=== PATIENT | female | born 1980 | race Caucasian/White ===

== ENCOUNTER 2018-09-26 10:33 | Emergency (ER) | payer MEDICAID, SELFPAY ==
[2018-09-26 10:39] VITALS: BP 150/87; PULSE 83; RESP 14; TEMP 36.6; O2SAT 98
--- NOTE | 2018-09-26 10:45 | W.ED.GENAD ---
Discharge Plan Disposition Patient Disposition: HOME Condition: Fair Discharge Details Chief Complaint: Orthopedic Clinical Impression: Arm pain, right Primary Care Provider: Te Ruggiero ED Provider: Bebe Barnes Home Meds and New Rx's Prescriptions: Continued lorazepam [Ativan] 1 mg Tablet 1 mg PO QDAY PRNRF: 0 sertraline [Zoloft] 50 mg Tablet 50 mg PO DAILY RF: 0 Discharge Instructions Instructions: Arm Pain (ED) Additional Instructions: Encourage rest, ice, elevation. Tylenol and ibuprofen as needed for discomfort. Continue with the sling while pain persists. However, please take this off at least 6 times daily to work on range of motion of your elbow, wrist, shoulder as discussed. Please follow-up with Ortho, call to schedule appointment, number listed below. If you develop fever/chills, increased pain, altered sensation or other new/worsening symptoms please seek care urgently once again. I will call you by 3PM with radiologist results, if you do not hear please call the emergency department directly. Referrals: Ruben Dailey MD [ [facility] STAFF PHYSICIAN] - Te Ruggiero [Primary Care Provider] - Discharge Data Discharge Date/Time-TO BE ENTERED AT DEPARTURE: 09/26/18 13:36 Medical Decision Making Patient is a 38-year-old [id number] female presenting today with chief complaint of exquisit right arm pain. She reports that over the weekend she did a cartwheel while intoxicated and fell striking her arm against a rock. Was seen at [place] emergency department at which time x-rays were performed she is unclear on the results. Patient presents today in a sling. Is endorsing primary source of pain is in the elbow. Is also endorsing pain in the wrist and over the AC joint. On exam, she has slightly prominent AC joint, this is comparable to the contralateral side. Patient has exquisite tenderness with any type of palpation about the elbow. Very limited range of motion. She has ecchymosis and swelling along the medial aspect. No deformity noted. She has 2+ distal pulses. Range of motion of the risk is increased pain in the elbow. She does have pain on palpation of the dorsal aspect of the wrist. No snuffbox tenderness. Hand is unremarkable. Plan to obtain imaging to evaluate for any fracture, will try to get [facility] records. Pain out of proportion. Review [facility] records, they advised that there is a question possible chip fracture of the olecranon. Discussed this with the patient. Images here reviewed by myself, I do not see any acute fracture abnormality. Appears that her clavicle is prominent but there is no defect of the AC joint. I do not appreciate any fat pads. Patient has to leave secondary to time constraints, but does not want to wait for radiology read. I will call her with results. She will continue with sling, particularly given the exquisite level of discomfort. I advised that some of her pain may be from inflamed area of the medial aspect of the elbow causing pressure ulnar nerve. Encourage rest, ice, elevation. Tylenol and ibuprofen as needed for discomfort. I did advise that she work on range of motion exercises to help with this or given. I have asked patient follow-up with orthopedics. All other questions and concerns were addressed and she is in agreement this plan After patient was discharged, I did call her back to let her know that radiologist did not note any acute sure bony abnormality HPI General Mode of arrival: ambulatory. Date/Time Provider Initiated Documentation: 09/26/18 10:45. Limitations to Documentation: no limitations. Information obtained by: patient and RN notes reviewed. History of Present Illness 38 year old F presents to the emergency department with the chief complaint of right shoulder, elbow and wrist pain after fall 2 days ago, described as moderate, with intensity rated at 8. Quality is described as aching, and is localized to the right and upper extremity. Patient reports no radiation. Patient started experiencing this day(s) (2) and it has been constant. Immobilization improves symptom(s), Movement worsens symptoms . Patient notes rash (eccymosis right medial elbow) and weakness; denies confusion, chest pain, fever/chills, headaches, nausea/vomiting and shortness of breath. Patient did receive the following treatments prior to arrival, NSAID and splint (in sling) Related Data Home Medications Medication Instructions Recorded Confirmed lorazepam [Ativan] 1 mg PO QDAY PRN 09/26/18 09/26/18 sertraline [Zoloft] 50 mg PO DAILY 09/26/18 09/26/18 Allergies Allergy/AdvReac Type Severity Reaction Status Date / Time No Known Allergies Allergy Unverified 09/26/18 10:43 General Stated Complaint: Orthopedic ALICE: 3 Review of Systems Constitutional Reports as per HPI, Denies chills, Denies fever(s), Denies headache(s) and Denies weakness ENT Denies headache(s) Cardiovascular Reports as per HPI Respiratory Reports as per HPI and Denies cough Musculoskeletal Reports as per HPI and Denies tingling Integumentary/Breasts Reports as per HPI, Denies rash and Denies wounds Neurologic Reports as per HPI, Denies headache(s), Denies tingling, Denies paresthesias and Denies weakness [facility] Social History Smoking/Tobacco Use Status: Current every day Tobacco Type: cigarettes Alcohol Intake: current Alcohol Intake frequency: holidays/special occasions only Drug use: Never Substance use type: does not use Do you feel safe at home: Yes Do you feel safe in your relationship?: Yes Exam Const General: cooperative, healthy appearing, comfortable, no acute distress, well developed and well groomed Nutritional Appearance: average body habitus and well nourished Orientation: alert and awake Resp Effort & Inspection: normal respiratory effort, able to speak in complete sentences and no respiratory distress Cardio Rate: regular rate Rhythm: regular rhythm Skin General skin exam: no rashes or lesions noted Lesions: no lesions Rashes: no rashes Trauma: no lacerations or abrasions Neuro General: alert and awake Cognition: normal cognition Speech: speech normal Gait: normal gait Motor: muscle tone normal throughout Sensory Exam: no sensory deficits noted Extrem Right upper extremity: normal capillary refill, no joint enlargement, shoulder/upper arm Details: tenderness Location: of the A-C joint and axillary nerve sensory function normal; no swelling and ROM limited, elbow/forearm Details: tenderness Location: of the olecranon, of the lateral epicondyle and of the medial epicondyle, swelling Location: of the medial epicondyle (swelling with ecchymosis), abnormal ROM Details: pain with active ROM during Details: with extension, with flexion, with pronation and with supination and ecchymosis; no unusual warmth, no abrasions, no lacerations, no crepitus and no deformity, wrist Details: tenderness Location: of the dorsal wrist; not of the anatomic snuffbox and radial pulse present; no swelling, ROM abnormal (limited supination/pronation, causes pain in elbow), no unusual warmth, no abrasions, no ecchymosis, no crepitus and no deformity and hand Details: normal to inspection, normal capillary refill, neuromotor exam normal, neurosensory exam normal, tendon exam normal, vascular exam Details: radial pulse present and normal capillary refill and no swelling; no tenderness, no unusual warmth, no swelling and no ecchymosis Psych Appearance: grossly normal and well kempt Mental Status: mental status grossly normal Speech and Movement: speech and movement normal Course Vital Signs Temperature 36.6 C 09/26/18 10:39 Pulse 83 09/26/18 10:39 Respiratory Rate 14 09/26/18 10:39 Blood Pressure 150/87 H 09/26/18 10:39 Pulse Oximetry 98 09/26/18 10:39 Temperature 36.6 C 09/26/18 10:39 Temperature Source Temporal Artery Scan 09/26/18 10:39 Pulse 83 09/26/18 10:39 Respiratory Rate 14 09/26/18 10:39 Respiratory Effort Non-Labored 09/26/18 10:42 Blood Pressure 150/87 H 09/26/18 10:39 Blood Pressure Position Sitting 09/26/18 10:39 Pulse Oximetry 98 09/26/18 10:39 Oxygen Delivery Method Room Air 09/26/18 10:39 Oxygen Flow Rate 0 09/26/18 10:39 Pain Level 8 09/26/18 10:39
--- NOTE | 2018-09-26 11:41 | DI.RAD_ITS ---
SYMPTOMS/DIAGNOSIS: FALL RIGHT SHOULDER: No fracture or dislocation is seen. There are no significant degenerative changes. IMPRESSION: Negative right shoulder. RIGHT ELBOW: No fracture or joint effusion is seen. There is some posterior soft tissue swelling. IMPRESSION: Negative right elbow. RIGHT WRIST: No fracture or dislocation is seen. IMPRESSION: Negative right wrist.
[2018-09-26] MEDS: Ibuprofen 600 MG TAB PO (11:52)
--- NOTE | 2018-09-26 11:53 | NUR.NOTE ---
pt medicated as per mdo take to xray Nursing Note:
--- NOTE | 2018-09-26 13:48 | ED.GENADUL_ITS ---
Discharge Plan Disposition Patient Disposition: HOME Condition: Fair Discharge Details Chief Complaint: Orthopedic Clinical Impression: Arm pain, right Primary Care Provider: Te Ruggiero ED Provider: Bebe Barnes Home Meds and New Rx's Prescriptions: Continued lorazepam [Ativan] 1 mg Tablet 1 mg PO QDAY PRNRF: 0 sertraline [Zoloft] 50 mg Tablet 50 mg PO DAILY RF: 0 Discharge Instructions Instructions: Arm Pain (ED) Additional Instructions: Encourage rest, ice, elevation. Tylenol and ibuprofen as needed for discomfort. Continue with the sling while pain persists. However, please take this off at least 6 times daily to work on range of motion of your elbow, wrist, shoulder as discussed. Please follow-up with Ortho, call to schedule appointment, number listed below. If you develop fever/chills, increased pain, altered sensation or other new/worsening symptoms please seek care urgently once again. I will call you by 3PM with radiologist results, if you do not hear please call the emergency department directly. Referrals: Ruben Dailey MD [ [facility] STAFF PHYSICIAN] - Te Ruggiero [Primary Care Provider] - Discharge Data Discharge Date/Time-TO BE ENTERED AT DEPARTURE: 09/26/18 13:36 Medical Decision Making Patient is a 38-year-old [id number] female presenting today with chief complaint of exquisit right arm pain. She reports that over the weekend she did a cartwheel while intoxicated and fell striking her arm against a rock. Was seen at [place] emergency department at which time x-rays were performed she is unclear on the results. Patient presents today in a sling. Is endorsing primary source of pain is in the elbow. Is also endorsing pain in the wrist and over the AC joint. On exam, she has slightly prominent AC joint, this is comparable to the contralateral side. Patient has exquisite tenderness with any type of palpation about the elbow. Very limited range of motion. She has ecchymosis and swelling along the medial aspect. No deformity noted. She has 2+ distal pulses. Range of motion of the risk is increased pain in the elbow. She does have pain on palpation of the dorsal aspect of the wrist. No snuffbox tenderness. Hand is unremarkable. Plan to obtain imaging to evaluate for any fracture, will try to get [place] records. Pain out of proportion. Review [place] records, they advised that there is a question possible chip fracture of the olecranon. Discussed this with the patient. Images here reviewed by myself, I do not see any acute fracture abnormality. Appears that her clavicle is prominent but there is no defect of the AC joint. I do not appreciate any fat pads. Patient has to leave secondary to time constraints, but does not want to wait for radiology read. I will call her with results. She will continue with sling, particularly given the exquisite level of discomfort. I advised that some of her pain may be from inflamed area of the medial aspect of the elbow causing pressure ulnar nerve. Encourage rest, ice, elevation. Tylenol and ibuprofen as needed for discomfort. I did advise that she work on range of motion exercises to help with this or given. I have asked patient follow-up with orthopedics. All other questions and concerns were a ddressed and she is in agreement this plan After patient was discharged, I did call her back to let her know that radiologist did not note any acute sure bony abnormality HPI General Mode of arrival: ambulatory . Date/Time Provider Initiated Documentation: 09/26/18 10:45 . Limitations to Documentation: no limitations . Information obtained by: patient and RN notes reviewed . History of Present I baljinderness 38 year old F presents to the emergency department with the chief complaint of right shoulder, elbow and wrist pain after fall 2 days ago, described as moderate, with intensity rated at 8. Quality is described as aching, and is localized to the right and upper extremity. Patient reports no radiation. Patient started experiencing this day(s) (2) and it has been constant. Immobilization improves symptom(s), Movement worsens symptoms . Patient notes rash (eccymosis right medial elbow) and weakness; denies confusion, chest pain, fever/chills, headaches, nausea/vomiting and shortness of breath. Patient did receive the following treatments prior to arrival, NSAID and splint (in sling) Related Data Home Medications Medication Instructions Recorded Confirmed lorazepam [Ativan] 1 mg PO QDAY PRN 09/26/18 09/26/18 sertraline [Zoloft] 50 mg PO DAILY 09/26/18 09/26/18 Allergies Allergy/AdvReac Type Severity Reaction Status Date / Time No Known Allergies Allergy Unverified 09/26/18 10:43 General Stated Complaint: Orthopedic ALICE: 3 Review of Systems Constitutional Reports as per HPI, Denies chills, Denies fever(s), Denies headache(s) and Denies weakness ENT Denies headache(s) Cardiovascular Reports as per HPI Respiratory Reports as per HPI and Denies cough Musculoskeletal Reports as per HPI and Denies tingling Integumentary/Breasts Reports as per HPI, Denies rash and Denies wounds Neurologic Reports as per HPI, Denies headache(s), Denies tingling, Denies paresthesias and Denies weakness [facility] Social History Smoking/Tobacco Use Status: Current every day Tobacco Type: cigarettes Alcohol Intake: current Alcohol Intake frequency: holidays/special occasions only Drug use: Never Substance use type: does not use Do you feel safe at home: Yes Do you feel safe in your relationship?: Yes Exam Const General: cooperative, healthy appearing, comfortable, no acute distress, well developed and well groomed Nutritional Appearance: average body habitus and well nourished Orientation: alert and awake Resp Effort & Inspection: normal respiratory effort, able to speak in complete sentences and no respiratory distress Cardio Rate: regular rate Rhythm: regular rhythm Skin General skin exam: no rashes or lesions noted Lesions: no lesions Rashes: no rashes Trauma: no lacerations or abrasions Neuro General: alert and awake Cognition: normal cognition Speech: speech normal Gait: normal gait Motor: muscle tone normal throughout Sensory Exam: no sensory deficits noted Extrem Right upper extremity: normal capillary refill, no joint enlargement, shoulder/upper arm Details: tenderness Location: of the A-C joint and axillary nerve sensory function normal; no swelling and ROM limited, elbow/forearm Details: tenderness Location: of the olecranon, of the lateral epicondyle and of the medial epicondyle, swelling Location: of the medial epicondyle (swelling with ecchymosis), abnormal ROM Details: pain with active ROM during Details: with extension, with flexion, with pronation and with supination and ecchymosis; no unusual warmth, no abrasions, no lacerations, no crepitus and no deformity, wrist Details: tenderness Location: of the dorsal wrist; not of the anatomic snuffbox and radial pulse present; no swelling, ROM abnormal (limited supination/pronation, causes pain in elbow), no unusual warmth, no abrasions, no ecchymosis, no crepitus and no deformity and hand Details: normal to inspection, normal capillary refill, neuromotor exam normal, neurosensory exam normal, tendon exam normal, vascular exam Details: radial pulse present and normal capillary refill and no swelling; no tenderness, no unusual warmth, no swelling and no ecchymosis Psych Appearance: grossly normal and well kempt Mental Status: mental status grossly normal Speech and Movement: speech and movement normal Course Vital Signs Temperature 36.6 C 09/26/18 10:39 Pulse 83 09/26/18 10:39 Respiratory Rate 14 09/26/18 10:39 Blood Pressure 150/87 H 09/26/18 10:39 Pulse Oximetry 98 09/26/18 10:39 Temperature 36.6 C 09/26/18 10:39 Temperature Source Temporal Artery Scan 09/26/18 10:39 Pulse 83 09/26/18 10:39 Respiratory Rate 14 09/26/18 10:39 Respiratory Effort Non-Labored 09/26/18 10:42 Blood Pressure 150/87 H 09/26/18 10:39 Blood Pressure Position Sitting 09/26/18 10:39 Pulse Oximetry 98 09/26/18 10:39 Oxygen Delivery Method Room Air 09/26/18 10:39 Oxygen Flow Rate 0 09/26/18 10:39 Pain Level 8 09/26/18 10:39
== END 2018-09-26 13:36 | disposition home or self-care (01) ==
PROVIDERS: Emergency Provider Physician Assistant; PCP Neuromusculoskeletal Medicine & OMM
DX: M79.601 Pain in right arm (principal); W01.0XXA Fall on same level from slipping, tripping and stumbling without subsequent striking against object, initial encounter
CPT/HCPCS: 99284; 73030; 73080; 73110; 99282

== ENCOUNTER 2024-08-28 02:44 | Outpatient (CLI) | payer MEDICAID, SELFPAY ==
--- NOTE | 2024-08-28 13:35 | DI.MAMMO_ITS ---
Exam(s) US BREAST RT LIMITED [facility] DIAGNOSTIC BI EXAM: [facility] MAMMO DIAGNOSTIC BI CLINICAL HISTORY: LUMP RIGHT BREAST N63.10. COMPARISON: [facility]MO [facility] SCREENING BILAT-M2 from 09/24/2022 TECHNIQUE: Craniocaudal and mediolateral oblique Full Field Digital Mammography views of both breast s with Computer Aided Diagnosis followed by Tomosynthesis and left breast ultrasound. FINDINGS: Mammography/Tomosynthesis: Masses: None seen. Architectural Distortion: None seen. Microcalcifications: No suspicious pleomorphic-type are seen. Skin Thickening/Nipple Retraction: None. Left breast US: Echotexture: Normal appearance of the glandular tissue. Shadowing: No suspicious foci. Cyst: None. Solid lesions: None seen. Ductal dilation: None. IMPRESSION: 1. No evidence of malignancy is noted. 2. Unless there is more urgent need, follow-up screening mammography is recommended, as per [place] [employer] guidelines. BI-RADS Category 1 - Negative Breast Density - Category B - There are scattered areas of fibroglandular density. Breast density Category C or D implies that the patient has dense breast tissue. Dense breast tissue can make it harder to find cancer on a mammogram. Dense breast tissue is also associated with an incr eased risk of breast cancer. This information about the result of the mammogram report was provided to the patient to raise their awareness. Use this report when you speak with the patient about their risks for breast cancer, which includes their family history. At that time, you may recommend additional screening tests (Ultrasoun d or MRI) as these tests may add significant information. A negative radiographic report should not delay biopsy if a dominant or clinically suspicious mass is present. Up to ten percent of cancers are not identified on mammography. A negative report may reinforce clinical impression. Adenosis and dense breasts may obscure an underlying neoplasm. False positive reports average 6 to 10%. Patient will receive a letter notifying them of these results.
== END 2024-08-28 03:04 ==
LOC: DI 02:45
PROVIDERS: PCP Neuromusculoskeletal Medicine & OMM; Visit Provider Specialist/Technologist Athletic Trainer
DX: R92.8 Other abnormal and inconclusive findings on diagnostic imaging of breast (principal); Z12.31 Encounter for screening mammogram for malignant neoplasm of breast
CPT/HCPCS: 76642; 77062; 77066; G0279